=== PATIENT | female | born 1970 | race Two or more races ===

== ENCOUNTER 2017-03-28 07:46 | Emergency (ER) | payer OTHER ==
[2017-03-28 08:07] VITALS: BP 118/92
--- NOTE | 2017-03-28 09:14 | UC ---
Nimesh Maxwell Alok, scribed for Guillermo De La Torre MD on 03/28/17 at 0823 . Back Pain HPI - HPI Summary HPI Summary: 47F presents to [facility] with back pain since 4 days ago, worsening last night. Pt states that her back pain is bilateral though worse on the left side, and wraps to her frontal suprapubic area. Pt states her pain registers at a 9/10 in severity and that her pain is worsened with movement. Pt also notes left leg weakness. Pt denies numbness after urine or BM. Pt denies incontinence. Pt denies rash. PMHx includes HLD. PSHx includes tonsillectomy. Pt is allergic to Codeine. FMHx includes CAD. - History of Current Complaint Chief Complaint: UCBackPain Stated Complaint: BACK PAIN Time Seen by Provider: 03/28/17 08:10 Hx Obtained From: Patient Hx Last Menstrual Period: 03/23/17 Onset/Duration: Lasting Days, Worse Since - last night Severity Initially: Moderate Severity Currently: Moderate Pain Intensity: 9 Pain Scale Used: 0-10 Numeric Back Pain: Is Discrete @ - lower back, Radiates To - suprapubic Aggravating: Movement Associated Signs And Symptoms: Positive: Weakness - left leg, Abdominal Pain - suprapubic, Flank Pain. Negative: Fever, Numbness, Bladder Incontinence, Bowel Incontinence - Allergies/Home Medications Allergies/Adverse Reactions: Allergies Allergy/AdvReac Type Severity Reaction Status Date / Time Codeine Allergy Severe Vomiting Verified 08/10/16 16:54 PMH/Surg Hx/FS Hx/Imm Hx Endocrine History Of: Reports: Dyslipidemia - HLD Denies: Diabetes, Thyroid Disease, Hyperthyroidism, Hypothyroidism Cardiovascular History Of: Denies: Cardiac Disorders, Hypertension, Pacemaker/ICD Respiratory History Of: Denies: COPD, Asthma GI/ History Of: Denies: Ulcer Neurological History Of: Denies: TIA, Seizures Psychological History Of: Denies: Anxiety, Depression Cancer History Of: Denies: Breast Cancer - Surgical History Surgical History: Yes Surgery Procedure, Year, and Place: TONSILS EARLY ;. VENOUS ABLASION FOR VARICOS VEINS;. EXPLORATORY LAP FOR ENDOMETRIOSIS ; - Family History Known Family History: Positive: Cardiac Disease, Other - hyperlipidemia. [place]. - Social History Occupation: Employed Full-time Lives: With Family Alcohol Use: Occasionally Substance Use Type: None Smoking Status (MU): Never Smoked Tobacco Review of Systems Constitutional: Negative Skin: Negative Genitourinary: Other - suprapublic pain. Negative: numbness after BM/urine. Negative: incontinence Musculoskeletal: Other: - back pain, left leg weakness All Other Systems Reviewed And Are Negative: Yes Physical Exam Triage Information Reviewed: Yes Appearance: Pain Distress Vital Signs: Initial Vital Signs Temp 98.3 F 03/28/17 08:00 Pulse 78 03/28/17 08:00 Resp 16 03/28/17 08:00 BP 118/92 03/28/17 08:00 Pulse Ox 100 03/28/17 08:00 Vital Signs Reviewed: Yes Eyes: Positive: Conjunctiva Clear ENT: Positive: Normal ENT inspection Neck: Positive: Supple, Nontender Respiratory: Positive: Chest non-tender, Lungs clear Cardiovascular: Positive: RRR, No Murmur Abdomen Description: Positive: Nontender Musculoskeletal: Positive: ROM Limited @ - due to pain in low back Neurological: Positive: Alert, Other: - she is ambulatory with pain in her back. Strength 5/5 legs, and upper extremities. Sensory grossly intact. Psychological: Positive: Normal Response To Family Skin: Negative: rashes Back Pain Course/Dx - Course Course Of Treatment: 47 yr old female with pain in low back, worse with movement and pain into her perineal area, and in the left thigh area. She will likely need MRI. She signed out AMA, and refused ambulance to [facility]. Dr Rubi Notified. She says she is driving to [facility] by her parents driving her. - Differential Dx/Diagnosis Provider Diagnoses: back pain - Physician Notifications Discussed Patient Care With: Dr. Rubi (ED) @ 0888 - made aware of pt hx and transit to ED Discharge - Discharge Plan Condition: Good Disposition: AGAINST MEDICAL ADVICE Referrals: Jean-Pierre Sofia MD [Primary Care Provider] - The documentation as recorded by the Nimesh crawley Alok accurately reflects the service I personally performed and the decisions made by , Guillermo De La Torre MD.
== END 2017-03-28 08:58 | disposition left against medical advice (07) ==
LOC: UCEAST 07:46
DX: M54.9 Dorsalgia, unspecified (principal); M62.81 Muscle weakness (generalized); R10.30 Lower abdominal pain, unspecified; Z88.5 Allergy status to narcotic agent; E78.5 Hyperlipidemia, unspecified
CPT/HCPCS: 99212; G0463

== ENCOUNTER 2017-03-28 09:09 | Emergency (ER) | payer OTHER ==
[2017-03-28] MEDS ORDERED: NS 0.9% 1000 ML* 1,000 ML IV ONE (10:27)
[2017-03-28] MEDS ORDERED: Ketorolac INJ* 30 MG/ML 1 ML VIAL IV PUSH ONE (10:29)
[2017-03-28] MEDS ORDERED: Diazepam TAB(*) 5 MG PO ONE (10:29)
[2017-03-28 10:56] LABS: Hematocrit 38 % (35-47); Hemoglobin 12.9 g/dl (12.0-16.0); Mean Corpuscular HGB Conc 34 g/dl (31-36); Mean Corpuscular Hemoglobin 32 pg (27-31); Mean Corpuscular Volume 94 fL (80-97); Mean Platelet Volume 7 um3 (7.4-10.4); Red Blood Count 4.04 10^6/ul (4.0-5.4); Red Cell Distribution Width 13 % (10.5-15); White Blood Count 5.4 10^3/ul (3.5-10.8)
[2017-03-28 11:11] LABS: C Reactive Protein < 1.00 mg/L (< 5.00)
[2017-03-28 11:47] LABS: Erythrocyte Sed Rate 18 mm/Hr (0-14)
[2017-03-28] MEDS ORDERED: Morphine INJ* 4 MG/ML 1 ML SYRINGE IV ONE (14:02)
[2017-03-28] MEDS ORDERED: Ondansetron INJ* 2 MG/ML VIAL IV ONE (14:02)
[2017-03-28 14:18] LABS: ALT 13 U/L (7-52); AST 21 U/L (13-39); Albumin 3.8 g/dL (3.2-5.2); Alkaline Phosphatase 38 U/L (34-104); Anion Gap 7 mmol/L (2-11); BUN/Creatinine Ratio 21.9 (8-20); Blood Urea Nitrogen 16 mg/dL (6-24); CO2 Carbon Dioxide 24 mmol/L (22-32); Calcium 8.5 mg/dL (8.6-10.3); Chloride 104 mmol/L (101-111); EGFR African American 109.9 (>60); EGFR Non-African American 85.5 (>60); Globulin 2.6 g/dL (2-4); Glucose 98 mg/dL (70-100); Potassium 4.6 mmol/L (3.5-5.0); Sodium 135 mmol/L (133-145); Total Protein 6.4 g/dL (6.4-8.9)
[2017-03-28 18:01] LABS: Urine Bacteria Absent (Absent); Urine Bilirubin Negative (Negative); Urine Glucose Negative (Negative); Urine Nitrite Negative (Negative)
[2017-03-28] MEDS ORDERED: oxyCODONE/Acetamin 5/325 MG* TAB PO ONE (18:11)
--- NOTE | 2017-03-28 19:25 | RAD ---
INDICATION: Back pain with radiation into the left leg COMPARISON: CT abdomen pelvis dated May 02, 2007 that shows mildly prominent left greater than right pelvic varicose veins in the setting of a mildly enlarged left ovarian vein. TECHNIQUE: Coronal manager maritime, sagittal T1, inversion recovery, T2, and axial T1, T2 images were acquired. FINDINGS: The spinal cord terminates at the L1/L2 level. There are no intrinsic abnormalities of the visualized cord. The lower thoracic and lumbar vertebrae are normally aligned. Vertebral body height is adequately maintained and bony signal is within normal limits. On the sagittal view images the intervertebral discs maintain appropriate T2 signal and adequate maintenance of height. At the S2 level there is a 6 mm fluid density well-circumscribed cyst (sagittal image 8) most consistent with a Tarlov cyst. Axial view images: At the lower lumbar spine there is mild facet arthropathy and mild thickening of the ligamentum flavum that does not yield any significant neural foraminal or central canal stenosis. Unless otherwise specified below there is no significant central canal stenosis or neural foraminal stenosis. L1-L2: There is no significant central canal or neural foraminal stenoses. L2-L3: There is no significant central canal or neural foraminal stenoses. L3-L4: There is no significant central canal or neural foraminal stenoses. L4-L5: Facet arthropathy and mild broad-based disc protrusion at the right neural foramen combining to cause mild to moderate right and mild left neural foraminal stenosis. L5-S1: Mild broad-based disc protrusion combines with facet arthropathy causing mild bilateral neural foraminal stenosis. IMPRESSION: 1. Mild degenerative changes of the lower lumbar spine combine to cause mild to moderate neural foraminal stenoses at L4/L5 and L5/S1. 2. There are no severely herniated or sequestered disc fragment identified.
--- NOTE | 2017-03-28 19:26 | ED ---
Bharat Maxwell Billy, scribed for Daquan Rubi MD on 03/28/17 at 1012 . Back Pain - HPI Summary HPI Summary: Patient is a 47 year-old coming to [facility] for evaluation of lower back pain. She had one episode of shooting, aching pain 3 days ago, which resolved spontaneously and gradually improved over time. However, the pain returned yesterday, and has been constant since. She took 2x extra strength Tylenol this morning at 0500 with no improvement. Pain severity is 7/10 at rest on her back, but is significantly worse with any movement. Pain is worse on the left than the right. It radiates to her lower abdomen and lower extremities. She says it feels like "heat and tingling" in the legs, down to the calf, and is much worse on the left. Positive nausea. Denies any changes in urinary or bladder movements. Denies hematuria. Denies weakness in the lower extremities. Denies neck pain. Denies any recent strenuous activity or disc herniation. She has a history of kidney stones. Denies history of back problems or disc herniations. - History of Current Complaint Chief Complaint: EDGeneral Stated Complaint: BACK PAIN Time Seen by Provider: 03/28/17 09:56 Hx Obtained From: Patient Hx Last Menstrual Period: 03/23/17 Onset/Duration: Lasting Days, Still Present, Worse Since - yesterday Timing: Intermittent Back Pain Location: Is Discrete @ - lower back Severity Initially: Moderate Severity Currently: Moderate Pain Intensity: 7 Pain Scale Used: 0-10 Numeric Aggravating Symptom(s): Movement Alleviating Symptom(s): Rest Associated Signs And Symptoms: Positive: Tingling, Other - nausea. Negative: Fever, Weakness, Bladder Incontinence, Bowel Incontinence - Allergies/Home Medications Allergies/Adverse Reactions: Allergies Allergy/AdvReac Type Severity Reaction Status Date / Time Codeine Allergy Severe Vomiting Verified 08/10/16 16:54 PMH/Surg Hx/FS Hx/Imm Hx Endocrine/Hematology History: Denies: Hx Diabetes, Hx Thyroid Disease Cardiovascular History: Reports: Hx Hypercholesterolemia Denies: Hx Hypertension, Hx Pacemaker/ICD, Hx Peripheral Vascular Disease Respiratory History: Denies: Hx Asthma, Hx Chronic Obstructive Pulmonary Disease (COPD) GI History: Denies: Hx Ulcer Musculoskeletal History: Denies: Hx Arthritis, Hx Osteoporosis, Hx Scoliosis Sensory History: Denies: Hx Cataracts, Hx Contacts or Glasses, Hx Glaucoma, Hx Hearing Aid Opthamlomology History: Denies: Hx Cataracts, Hx Contacts or Glasses, Hx Glaucoma Neurological History: Denies: Hx Headaches, Hx Seizures, Hx Transient Ischemic Attacks (TIA), Other Neuro Impairments/Disorders Psychiatric History: Denies: Hx Anxiety, Hx Depression, Hx Panic Disorder - Cancer History Hx Chemotherapy: No Hx Radiation Therapy: No - Surgical History Surgery Procedure, Year, and Place: TONSILS EARLY ;. VENOUS ABLASION FOR VARICOS VEINS;. EXPLORATORY LAP FOR ENDOMETRIOSIS ; Infectious Disease History: No Infectious Disease History: Denies: Hx Clostridium Difficile, Hx Hepatitis, Hx Human Immunodeficiency Virus (HIV), Hx of Known/Suspected MRSA, Hx Shingles, Hx Tuberculosis, Hx Known/ Suspected VRE, Hx Known/Suspected VRSA, History Other Infectious Disease, Traveled Outside the [place] in Last 30 Days - Family History Known Family History: Positive: Other - hyperlipidemia. [place]. - Social History Alcohol Use: Occasionally Substance Use Type: Reports: None Smoking Status (MU): Never Smoked Tobacco Review of Systems Negative: Fever Positive: Nausea Musculoskeletal: Other - back pain Positive: Paresthesia. Negative: Weakness All Other Systems Reviewed And Are Negative: Yes Physical Exam - Summary Physical Exam Summary: The patient is well-nourished in no acute distress and in no acute pain. The skin is warm and dry and skin color reflects adequate perfusion. HEENT: The head is normocephalic and atraumatic. The pupils are equal and reactive. The conjunctivae are clear and without drainage. Nares are patent and without drainage. Mouth reveals moist mucous membranes and the throat is without erythema and exudate. The external ears are intact. The ear canals are patent and without drainage. The tympanic membranes are intact. Neck is supple with full range of motion and non-tender. There are no carotid bruits. There is no neck vein distension. Respiratory: Chest is non-tender. Lungs are clear to auscultation and breath sounds are symmetrical and equal. Cardiovascular: Heart is regular rate and rhythm. There is no murmur or rub auscultated. There is no peripheral edema and pulses are symmetrical and equal. Abdomen: The abdomen is soft and non-tender. There are normal bowel sounds heard in all four quadrants and there is no organomegaly palpated. Musculoskeletal: Positive straight leg raise on the left. Negative right-sided straight leg raise. DTR's symmetrical. No muscle spasm noted in the back. No buttock pain or sciatic pain noted. There is good capillary refill. There is no peripheral edema or calf tenderness elicited. Neurological: Patient is alert and oriented to person, place and time. The patient has symmetrical motor strength in all four extremities. Cranial nerves are grossly intact. Deep tendon reflexes are symmetrical and equal in all four extremities. Psychiatric: The patient has an appropriate affect and does not exhibit any anxiety or depression. Triage Information Reviewed: Yes Vital Signs On Initial Exam: Initial Vitals Temp Pulse Resp BP Pulse Ox 98.2 F 93 20 131/91 98 03/28/17 09:11 03/28/17 09:11 03/28/17 09:11 03/28/17 09:11 03/28/17 09:11 Vital Signs Reviewed: Yes - [place] Coma Scale Coma Scale Total: 15 Diagnostics - Vital Signs Vital Signs Temp Pulse Resp BP Pulse Ox 03/28/17 09:28 79 96 03/28/17 09:26 134/90 03/28/17 09:15 98.2 F 91 20 131/91 97 03/28/17 09:11 98.2 F 93 20 131/91 98 - Laboratory Lab Results: Lab Results 03/28/17 03/28/17 03/28/17 Range/Units 10:48 10:48 10:48 WBC 5.4 (3.5-10.8) 10^3/ul RBC 4.04 (4.0-5.4) 10^6/ul Hgb 12.9 (12.0-16.0) g/dl Hct 38 (35-47) % MCV 94 (80-97) fL MCH 32 H (27-31) pg MCHC 34 (31-36) g/dl RDW 13 (10.5-15) % Plt Count 275 (150-450) 10^3/ul MPV 7 L (7.4-10.4) um3 Neut % (Auto) 64.6 (38-83) % Lymph % (Auto) 24.2 L (25-47) % [place] % (Auto) 8.8 (1-9) % Eos % (Auto) 1.2 (0-6) % Baso % (Auto) 1.2 (0-2) % Absolute Neuts (auto) 3.5 (1.5-7.7) 10^3/ul Absolute Lymphs (auto) 1.3 (1.0-4.8) 10^3/ul Absolute Monos (auto) 0.5 (0-0.8) 10^3/ul Absolute Eos (auto) 0.1 (0-0.6) 10^3/ul Absolute Basos (auto) 0.1 (0-0.2) 10^3/ul Absolute Nucleated RBC 0 10^3/ul Nucleated RBC % 0.1 ESR 18 H (0-14) mm/Hr Sodium 135 (133-145) mmol/L Potassium 4.6 (3.5-5.0) mmol/L Chloride 104 (101-111) mmol/L Carbon Dioxide 24 (22-32) mmol/L Anion Gap 7 (2-11) mmol/L BUN 16 (6-24) mg/dL Creatinine 0.73 (0.51-0.95) mg/dL Est GFR ( Amer) 109.9 (>60) Est GFR (Non-Af Amer) 85.5 (>60) BUN/Creatinine Ratio 21.9 H (8-20) Glucose 98 (70-100) mg/dL Lactic Acid 1.0 (0.5-2.0) mmol/L Calcium 8.5 L (8.6-10.3) mg/dL Total Bilirubin 0.60 (0.2-1.0) mg/dL AST 21 (13-39) U/L ALT 13 (7-52) U/L Alkaline Phosphatase 38 (34-104) U/L C-Reactive Protein < 1.00 (< 5.00) mg/L Total Protein 6.4 (6.4-8.9) g/dL Albumin 3.8 (3.2-5.2) g/dL Globulin 2.6 (2-4) g/dL Albumin/Globulin Ratio 1.5 (1-3) Urine Color Urine Appearance Urine pH (5-9) Ur Specific Elaine (1.010-1.030) Urine Protein (Negative) Urine Ketones (Negative) Urine Blood (Negative) Urine Nitrate (Negative) Urine Bilirubin (Negative) Urine Urobilinogen (Negative) Ur Leukocyte Esterase (Negative) Urine WBC (Auto) (Absent) Urine RBC (Auto) (Absent) Ur Squamous Epith Cells (Absent) Urine Bacteria (Absent) Urine Glucose (Negative) 03/28/17 Range/Units 17:45 WBC (3.5-10.8) 10^3/ul RBC (4.0-5.4) 10^6/ul Hgb (12.0-16.0) g/dl Hct (35-47) % MCV (80-97) fL MCH (27-31) pg MCHC (31-36) g/dl RDW (10.5-15) % Plt Count (150-450) 10^3/ul MPV (7.4-10.4) um3 Neut % (Auto) (38-83) % Lymph % (Auto) (25-47) % [place] % (Auto) (1-9) % Eos % (Auto) (0-6) % Baso % (Auto) (0-2) % Absolute Neuts (auto) (1.5-7.7) 10^3/ul Absolute Lymphs (auto) (1.0-4.8) 10^3/ul Absolute Monos (auto) (0-0.8) 10^3/ul Absolute Eos (auto) (0-0.6) 10^3/ul Absolute Basos (auto) (0-0.2) 10^3/ul Absolute Nucleated RBC 10^3/ul Nucleated RBC % ESR (0-14) mm/Hr Sodium (133-145) mmol/L Potassium (3.5-5.0) mmol/L Chloride (101-111) mmol/L Carbon Dioxide (22-32) mmol/L Anion Gap (2-11) mmol/L BUN (6-24) mg/dL Creatinine (0.51-0.95) mg/dL Est GFR ( Amer) (>60) Est GFR (Non-Af Amer) (>60) BUN/Creatinine Ratio (8-20) Glucose (70-100) mg/dL Lactic Acid (0.5-2.0) mmol/L Calcium (8.6-10.3) mg/dL Total Bilirubin (0.2-1.0) mg/dL AST (13-39) U/L ALT (7-52) U/L Alkaline Phosphatase (34-104) U/L C-Reactive Protein (< 5.00) mg/L Total Protein (6.4-8.9) g/dL Albumin (3.2-5.2) g/dL Globulin (2-4) g/dL Albumin/Globulin Ratio (1-3) Urine Color Yellow Urine Appearance Cloudy Urine pH 5.0 (5-9) Ur Specific Elaine 1.028 (1.010-1.030) Urine Protein 1+(30 mg/dl) H (Negative) Urine Ketones 1+ H (Negative) Urine Blood 1+ H (Negative) Urine Nitrate Negative (Negative) Urine Bilirubin Negative (Negative) Urine Urobilinogen Negative (Negative) Ur Leukocyte Esterase Trace H (Negative) Urine WBC (Auto) Trace(0-5/hpf) (Absent) Urine RBC (Auto) 2+(6-10/hpf) H (Absent) Ur Squamous Epith Cells Present H (Absent) Urine Bacteria Absent (Absent) Urine Glucose Negative (Negative) Result Diagrams: 03/28/17 10:48 03/28/17 10:48 Lab Statement: Any lab studies that have been ordered have been reviewed, and results considered in the medical decision making process. - Additional Comments Diagnostic Additional Comments: See EMR for radiologist's official interpretation of the patient's lumbar spine MRI. Radiologist called the ED and gave verbal report: MRI negative for disc herniation. He gives a diagnosis of pelvic congestion syndrome. Re-Evaluation - Re-Evaluation First Eval Re-Evaluation Time: 12:36 Change: Improved Comment: Pain is under control at this time. Discussed plan for MRI at 1530. Second Eval Re-Evaluation Time: 14:01 Change: Worse Comment: She complains of pain to the left lower back. Back Pain Course/Dx - Course Assessment/Plan: This patient is a 47 year-old female coming to [facility] for evaluation of lower back pain. In the ED course, the patient was hydrated with IV fluids and given Toradol for pain as well as Valium. Upon re-evaluation, she complained of worsening pain and was given Morphine. The pain continued and she was given one dose of Percocet. Due to the presentation of her symptoms, an MRI of her lumbar spine was ordered. MRI is negative for disc herniation per radiologist. He believes she has pelvic congestion syndrome. She will be discharged home with instructions for pain management. - Diagnoses Differential Diagnosis/HQI/PQRI: Positive: Cauda Equina Syndrome, Compressive Cord Syndrome, Herniated Disc, Renal Colic, Other - pelvic congestion syndrome, degenerative disc disease Provider Diagnoses: Pelvic congestion syndrome, Back pain Discharge - Discharge Plan Condition: Stable Disposition: HOME Prescriptions: Cyclobenzaprine TAB* [Flexeril 10 MG TAB*] 10 mg PO TID PRN #30 tab PRN Reason: Pain oxyCODONE/Acetamin 5/325 MG* [Percocet 5/325 TAB*] 1 tab PO Q6H PRN #20 tab MDD 4 PRN Reason: Pain Patient Education Materials: Back Pain (ED) Referrals: Jean-Pierre Sofia MD [Primary Care Provider] - Manpreet Dowling MD [Medical Doctor] - The documentation as recorded by the Bharat crawley Billy accurately reflects the service I personally performed and the decisions made by , Daquan Rubi MD.
[2017-03-28 19:54] VITALS: BP 122/95
== END 2017-03-28 19:48 | disposition home or self-care (01) ==
LOC: ED 09:09
DX: M54.5 Low back pain (principal); N94.89 Other specified conditions associated with female genital organs and menstrual cycle; E78.00 Pure hypercholesterolemia, unspecified; Z88.5 Allergy status to narcotic agent
CPT/HCPCS: 36415; 72148; 80053; 81003; 81015; 83605; 85025; 85652; 86140; 87086; 96360; 96374; 96375; 99284; A9270-GY; J1885; J2270; J2405

== ENCOUNTER 2019-03-13 11:13 | Emergency (ER) | payer OTHER ==
[2019-03-13] MEDS ORDERED: Lidocaine 1%* 5 ML VIAL INJ ONE (11:22)
[2019-03-13] MEDS ORDERED: Diphth/Teta/Acell Pertusis* 0.5 ML VIAL ** FOR 6 WKS TO 7 YRS OLD IM ONE (11:23)
--- NOTE | 2019-03-13 11:24 | ED ---
Laceration/Wound HPI - HPI Summary HPI Summary: Pt. is a 49 y.o female who presents to the ER for laceration to left thumb that occurred [employer]LECT[employer]ATING WORK[employer]. Pt. states she was opening a tire fabricator when it slipped and cut left thumb. Last tetanus immunization was 5 years ago per pt. No past medical hx. Touching affected area makes sxs worse. Rest makes sxs better. - History of Current Complaint Stated Complaint: LEFT THUMB LACERATION PER PT Time Seen by Provider: 03/13/19 11:22 Hx Obtained From: Patient Hx Last Menstrual Period: 03/23/17 Pain Intensity: 1 - Allergy/Home Medications Allergies/Adverse Reactions: Allergies Allergy/AdvReac Type Severity Reaction Status Date / Time codeine Allergy Vomiting Verified 03/13/19 11:16 PMH/Surg Hx/FS Hx/Imm Hx Previously Healthy: Yes Endocrine/Hematology History: Denies: Hx Diabetes, Hx Thyroid Disease Cardiovascular History: Reports: Hx Hypercholesterolemia Denies: Hx Hypertension, Hx Pacemaker/ICD, Hx Peripheral Vascular Disease Respiratory History: Denies: Hx Asthma, Hx Chronic Obstructive Pulmonary Disease (COPD) GI History: Denies: Hx Ulcer Musculoskeletal History: Denies: Hx Arthritis, Hx Osteoporosis, Hx Scoliosis Sensory History: Denies: Hx Cataracts, Hx Contacts or Glasses, Hx Glaucoma, Hx Hearing Aid Opthamlomology History: Denies: Hx Cataracts, Hx Contacts or Glasses, Hx Glaucoma Neurological History: Denies: Hx Headaches, Hx Seizures, Hx Transient Ischemic Attacks (TIA), Other Neuro Impairments/Disorders Psychiatric History: Denies: Hx Anxiety, Hx Depression, Hx Panic Disorder - Cancer History Hx Chemotherapy: No Hx Radiation Therapy: No - Surgical History Surgery Procedure, Year, and Place: TONSILS EARLY ;. VENOUS ABLASION FOR VARICOS VEINS;. EXPLORATORY LAP FOR ENDOMETRIOSIS ; Infectious Disease History: No Infectious Disease History: Denies: Hx Clostridium Difficile, Hx Hepatitis, Hx Human Immunodeficiency Virus (HIV), Hx of Known/Suspected MRSA, Hx Shingles, Hx Tuberculosis, Hx Known/ Suspected VRE, Hx Known/Suspected VRSA, History Other Infectious Disease, Traveled Outside the [place] in Last 30 Days - Family History Known Family History: Positive: Cardiac Disease, Other - hyperlipidemia. [place]. - Social History Occupation: Employed Full-time Lives: With Family Alcohol Use: Occasionally Substance Use Type: Reports: None Smoking Status (MU): Never Smoked Tobacco Review of Systems Positive: Other - laceration to left thumb Negative: Weakness, Paresthesia, Numbness All Other Systems Reviewed And Are Negative: Yes Physical Exam Triage Information Reviewed: Yes Vital Signs On Initial Exam: Initial Vitals Temp Pulse Resp BP Pulse Ox 96.9 F 111 16 133/95 94 03/13/19 11:16 03/13/19 11:16 03/13/19 11:16 03/13/19 11:16 03/13/19 11:16 Vital Signs Reviewed: Yes Appearance: Positive: Well-Appearing - Pt. sitting on bed in NAD> present. Skin: Positive: Warm, Dry Head/Face: Positive: Normal Head/Face Inspection Eyes: Positive: Normal, EOMI Neck: Positive: Supple Musculoskeletal: Positive: Other - 2 cm triangular shaped laceration noted medially along left thumb distally. No nail involvement. Full ROM of digit. Neurological: Positive: Normal, CN Intact II-III Psychiatric: Positive: Affect/Mood Appropriate Procedures - Laceration/Wound Repair 1 Location: upper extremity - left thumb Description: Irregular Anesthesia: Local, 1.0%, L[place] Length, Depth and Shape: 2cm triangular shaped, full thickness Irrigated w/ Saline (ccs): 100 Laceration/Wound Explored: clean Closure: Single Layer Suture Type: Nylon Number of Sutures: 3 Layer Closure?: No Sterile Dressing Applied?: Yes Diagnostics - Vital Signs Vital Signs Temp Pulse Resp BP Pulse Ox 03/13/19 11:16 96.9 F 111 16 133/95 94 - Laboratory Lab Statement: Any lab studies that have been ordered have been reviewed, and results considered in the medical decision making process. Laceration Repair Course/Dx - Course Course Of Treatment: Pt. presenting for simple thumb laceration that was repaired as noted above. Suture removal in 7-10 days. Keep wound clean and dry. Return to ER for redness, swelling, or drainage from wound. Pt. understands and agrees with plan. - Differential Dx Differental Diagnoses: Laceration, Tendon Laceration - Clinical Impression Provider Diagnoses: Laceration of thumb Discharge - Sign-Out/Discharge Documenting (check all that apply): Patient Departure Patient Received Moderate/Deep Sedation with Procedure: No - Discharge Plan Condition: Improved Disposition: HOME Patient Education Materials: Care For Your Stitches (ED) Referrals: Jean-Pierre Sofia MD [Primary Care Provider] - Additional Instructions: Suture removal in 7-10 days Keep wound clean and dry Return to ER for redness, swelling, or drainage from wound - Billing Disposition and Condition Condition: IMPROVED Disposition: Home
[2019-03-13 12:22] VITALS: BP 126/93
== END 2019-03-13 12:20 | disposition home or self-care (01) ==
LOC: ED 11:13
DX: S61.012A Laceration without foreign body of left thumb without damage to nail, initial encounter (principal); W29.0XXA Contact with powered kitchen appliance, initial encounter; Z88.5 Allergy status to narcotic agent
CPT/HCPCS: 12001; 99282

== ENCOUNTER 2020-01-06 03:06 | Emergency (ER) | payer OTHER ==
--- OUTSIDE RECORDS SUMMARY | 2020-01-06 04:09 | XMS REPORT | Continuity of Care Document ---
:1970 External Reference #:[id number] Author Name Saman Do MD (transmitted by agent of provider Carmen Craven) Address [address] [place] [id number] Care Team Providers Name Role Phone Jean-Pierre Sofia MD - Endocrinology, Care Team Information Business Account Executive [phone] Diabetes & Metabolism Problems Active Problems Provider Date Disturbance in sleep behavior Nadine Matthews MD Onset: 04/04/2016 Restless legs Nadine Matthews MD Onset: 04/04/2016 Obstructive sleep apnea syndrome Nadine Matthews MD Onset: 06/11/2016 Hypersomnia Sweetie Mckenzie DNP, RN, [employer]- Onset: 10/01/2016 Pelvic varices Manpreet Dowling M.D. Onset: 04/16/2017 Disorder of shoulder Suman Posadas MD Onset: 08/19/2019 Social History Type Date Description Comments Sex Unknown Tobacco Use Start: Unknown Never Smoked Cigarettes Smoking Status Reviewed: 11/25/19 Never Smoked Cigarettes ETOH Use Consumes 5 glasses of wine per week Tobacco Use Start: Unknown Patient has never smoked Recreational Drug Use Denies Drug Use Exercise Type/Frequency Exercises regularly walking, biking, kayaking Allergies, Adverse Reactions, Alerts Active Allergies Reaction Severity Comments Date Codeine Nausea and Vomiting 04/04/2016 Pineapple 04/16/2017 Medications Active Medications SIG Qnty Indications Ordering Provider Date Atorvastatin Calcium take 1 tablet Unknown 04/03/2016 20mg every other day Tablets Fluoxetine HCL 1 by mouth every Unknown 04/03/2016 20mg day Capsules Adderall 1 po bid prn or Unknown 10mg Tablets as directed prn Cpap use at hs Unknown Device Minocycline HCL Take 1 Capsule By Unknown 100mg Mouth Two Times Capsules Daily With A Full Glass Of Water -- DO Not Lie Down For 1 Hour After Taking Medications Administered in Office Medication SIG Qnty Indications Ordering Provider Date Triamcinolone (Kenalog) Suman Posadas MD 08/19/2019 Injection Immunizations Description No Information Available Vital Signs Date Vital Result Comment 11/25/2019 10:39am Height 69 inches 5'9" Weight 170.00 lb Heart Rate 74 /min BP Systolic 140 mmHg BP Diastolic 78 mmHg Respiratory Rate 12 /min Pain Level 3 BMI (Body Mass Index) 25.1 kg/m2 08/19/2019 1:47pm Height 69 inches 5'9" Weight 183.00 lb Heart Rate 120 /min BP Systolic 128 mmHg BP Diastolic 80 mmHg Body Temperature 97.6 F Pain Level 2 BMI (Body Mass Index) 27.0 kg/m2 Results Description No Information Available Procedures Date Code Description Status 08/19/2019 74711 Inject/Drain Joint/Bursa Major W/O US Completed Medical Devices Description No Information Available Encounters Type Date Location Provider Dx Diagnosis Office Visit 08/19/2019 [facility] Suman Posadas MD M75.42 Impingement 1:45p at [place] syndrome of left shoulder S46.012D Strain of musc/tend the rotator cuff of left shoulder, subs Office Visit 08/03/2019 9:30a [facility] M75.42 Impingement at [place] syndrome of left shoulder S46.012A Strain of musc/tend the rotator cuff of left shoulder, init Assessments Date Code Description Provider 11/25/2019 S46.012D Strain of muscle(s) and tendon(s) of the Saman Do MD rotator cuff of left shoulder, subsequent encounter 11/25/2019 M75.42 Impingement syndrome of left shoulder Saman Do MD 08/19/2019 M75.42 Impingement syndrome of left shoulder Suman Posadas MD 08/19/2019 S46.012D Strain of muscle(s) and tendon(s) of the Suman Posadas MD rotator cuff of left shoulder, subsequent encounter 08/03/2019 M75.42 Impingement syndrome of left shoulder Suman Posadas MD 08/03/2019 S46.012A Strain of muscle(s) and tendon(s) of the Suman Posadas MD rotator cuff of left shoulder, initial encounter Plan of Treatment 11/25/2019 - Saman Do, MDS46.012D Strain of muscle(s) and tendon(s) of the rotator cuff of left shoulder, subsequent encounterNew Therapy:Physical TherapyFollow up:Follow up: As [id number] Impingement syndrome of left shoulder Functional Status Functional Condition Comment Date Status none Active Mental Status Description No Information Available Referrals Description No Information Available
[2020-01-06] MEDS ORDERED: NS 0.9% 1000 ML** 1,000 ML IV ONE (04:14)
[2020-01-06] MEDS ORDERED: Al Hydrox/Mg Hydrox/Simet LIQ* 30 ML UDC PO ONE ×2 (04:14)
[2020-01-06] MEDS ORDERED: Pantoprazole IV* 40 MG IV ONE (04:14)
[2020-01-06] MEDS: Lidocaine 2% VISCOUS* 15 ML UDC PO ONE ×2 (04:23→04:25)
[2020-01-06 04:36] LABS: ABS Eosinophils 0.1 10^3/ul (0-0.6); ABS Lymphocytes 1.2 10^3/ul (1.0-4.8); ABS Monocytes 0.9 10^3/ul (0-0.8); Eosinophil % 1.1 %; Hematocrit 40 % (35-47); Hemoglobin 13.9 g/dL (12.0-16.0); Lymphocyte % 11.7 %; Mean Corpuscular HGB Conc 35 g/dL (31-36); Mean Corpuscular Hemoglobin 33 pg (27-31); Mean Corpuscular Volume 95 fL (80-97); Mean Platelet Volume 6.8 fL (7.4-10.4); Platelet Count 337 10^3/uL (150-450); Red Blood Count 4.22 10^6 /uL (3.70-4.87); Red Cell Distribution Width 13 % (10-15); White Blood Count 10.3 10^3/uL (3.5-10.8)
[2020-01-06 04:48] LABS: Urine Appearance Cloudy; Urine Bilirubin Negative (Negative); Urine Blood 1+ (Negative); Urine Color Straw; Urine Glucose Negative (Negative); Urine Ketones Negative (Negative); Urine Nitrite Negative (Negative); Urine Protein Negative (Negative); Urine Specific Gravity 1.009 (1.010-1.030); Urine Urobilinogen Negative (Negative)
[2020-01-06 04:49] LABS: INR 0.92 (0.82-1.09)
[2020-01-06 04:50] LABS: Urine Bacteria 2+ (Absent); Urine Red Blood Cell Trace(0-2/hpf) (Absent); Urine Squamous Epithelial Cell Present (Absent); Urine White Blood Cell Absent (Absent)
[2020-01-06 04:58] LABS: Albumin 4.3 g/dL (3.2-5.2); Albumin/Globulin Ratio 1.7 (1-3); BUN/Creatinine Ratio 26.2 (8-20); C Reactive Protein 22.42 mg/L (<8.01); Calcium 9.4 mg/dL (8.6-10.3); EGFR African American 126.1 (>60); EGFR Non-African American 104.2 (>60); Globulin 2.6 g/dL (2-4); Potassium 4.4 mmol/L (3.5-5.0); Total Bilirubin 0.5 mg/dL (0.2-1.0); Total Protein 6.9 g/dL (6.4-8.9)
[2020-01-06 05:03] LABS: HCG Pregnancy 1.01 mIU/mL
[2020-01-06] MEDS ORDERED: Ketorolac INJ* 30 MG/ML 1 ML VIAL IV PUSH ONE (05:04)
[2020-01-06] MEDS ORDERED: Ondansetron INJ* 2 MG/ML VIAL IV ONE (05:04)
--- NOTE | 2020-01-06 05:11 | ED ---
Abdominal Pain/Female - HPI Summary HPI Summary: Patient is a y/o F presenting to [facility] with a chief complaint of epigastric pressure and diffuse low back pain onset yesterday morning. She reports that she had woken up with stiffness in her back and a discomfort in the epigastric area with sensation of bloating. She went to work where the pain worsened after eating. She attempted to eat again at 1830 but then the pain was aggravated again. She denies any chest pain, cough, diarrhea, vomiting, or fevers, although she states she feels warm. She self-administered Tylenol for a toothache yesterday at 1700. Symptoms are rated 4/10 in severity. She states she is unable to get comfortable. PMHx: HLD (now diet controlled stopped taking medication 3 months ago), kidney stones, ADD, laparoscopic exploratory surgery, tonsillectomy. FHx: gallbladder disease. Nonsmoker, weekly EtOH, no substance use. Medications reviewed. Allergies noted. - History of Current Complaint Chief Complaint: EDAbdPain Stated Complaint: ABD PAIN Hx Obtained From: Patient Hx Last Menstrual Period: 03/23/17 Onset/Duration: Sudden Onset, Still Present Timing: Constant Severity Initially: Mild Severity Currently: Moderate Pain Intensity: 4 Pain Scale Used: 0-10 Numeric Location: Epigastric Radiates: No Character: Other: - pressure Aggravating Factor(s): Food Alleviating Factor(s): Nothing Associated Signs and Symptoms: Positive: Fever - subjective, Nausea. Negative: Cough, Chest Pain, Vomiting, Diarrhea, Other: - SOB Allergies/Adverse Reactions: Allergies Allergy/AdvReac Type Severity Reaction Status Date / Time codeine Allergy Intermediate Vomiting Verified 01/06/20 04:07 Home Medications: Home Medications Dextroamphetamine/Amphetamine [Dextroamp-Amphetamin 10 mg Tab] 10 mg PO BID PRN 01/06/20 [History Confirmed 01/06/20] PMH/Surg Hx/FS Hx/Imm Hx Endocrine/Hematology History: Denies: Hx Diabetes, Hx Thyroid Disease Cardiovascular History: Reports: Hx Hypercholesterolemia Denies: Hx Hypertension, Hx Pacemaker/ICD, Hx Peripheral Vascular Disease Respiratory History: Denies: Hx Asthma, Hx Chronic Obstructive Pulmonary Disease (COPD) GI History: Denies: Hx Ulcer History: Denies: Hx Renal Disease Musculoskeletal History: Denies: Hx Arthritis, Hx Osteoporosis, Hx Scoliosis Sensory History: Denies: Hx Cataracts, Hx Contacts or Glasses, Hx Glaucoma, Hx Hearing Aid Opthamlomology History: Denies: Hx Cataracts, Hx Contacts or Glasses, Hx Glaucoma Neurological History: Denies: Hx Headaches, Hx Seizures, Hx Transient Ischemic Attacks (TIA), Other Neuro Impairments/Disorders Psychiatric History: Denies: Hx Anxiety, Hx Depression, Hx Panic Disorder - Cancer History Hx Chemotherapy: No Hx Radiation Therapy: No - Surgical History Surgical History: Yes Surgery Procedure, Year, and Place: TONSILS EARLY ;. VENOUS ABLASION FOR VARICOS VEINS;. EXPLORATORY LAP FOR ENDOMETRIOSIS ; Infectious Disease History: Denies: Hx Clostridium Difficile, Hx Hepatitis, Hx Human Immunodeficiency Virus (HIV), Hx of Known/Suspected MRSA, Hx Shingles, Hx Tuberculosis, Hx Known/ Suspected VRE, Hx Known/Suspected VRSA, History Other Infectious Disease, Traveled Outside the [place] in Last 30 Days - Family History Known Family History: Positive: Cardiac Disease, Other - hyperlipidemia. HI. - Social History Alcohol Use: Weekly Hx Substance Use: No Substance Use Type: Reports: None Hx Tobacco Use: No Smoking Status (MU): Never Smoked Tobacco - Additional Comments History Additional Comments: hypercholesterolemia Review of Systems - ROS Summary Review of Systems Summary: Home Medications Medication Instructions Recorded Confirmed Type Atorvastatin* [Lipitor 20 MG*] 20 mg PO DAILY 01/06/20 01/06/20 History Dextroamphetamine/Amphetamine 10 mg PO BID PRN 01/06/20 01/06/20 History [Dextroamp-Amphetamin 10 mg Tab] Positive: Fever - warm sensation but not measured Negative: Chest Pain Negative: Shortness Of Breath, Cough Positive: Abdominal Pain - epigastric, bloating, Nausea. Negative: Vomiting, Diarrhea All Other Systems Reviewed And Are Negative: Yes Physical Exam - Summary Physical Exam Summary: General: Well-developed, Well-developed female. Appears in moderate discomfort. HEENT: Normocephalic, Atraumatic. Eyes: Conjuctiva normal, PERRL. Oropharynx: Clear, mucous membranes moist, (-) exudates. Neck: Soft, FROM, (-) lymphadenopathy, (-) thyromegaly, (-) JVD. Cardiovascular: Normal sinus rhythm, (-) murmur. Lungs: Clear to auscultation bilaterally (-) wheezes, (-) rales, (-) rhonchi. Abdomen: Soft, mild upper abdominal tenderness to palpation, non-distended, (-) organomegaly, normal bowel sounds. Back: (-) CVA tenderness Extremities: No edema. Skin: Warm, dry, (-) rash. Neuro: Alert and oriented x3, moves all extremities equally. No ataxia. No gait disturbance. No sensory deficit. Normal strength, normal sensation. Psychiatric: Mildly agitated appearing, affect normal. Triage Information Reviewed: Yes Vital Signs Reviewed: Yes Procedures - Sedation Patient Received Moderate/Deep Sedation with Procedure: No Diagnostics - Laboratory Lab Results: Lab Results 01/06/20 01/06/20 01/06/20 Range/Units 04:21 04:28 04:28 WBC 10.3 (3.5-10.8) 10^3/uL RBC 4.22 (3.70-4.87) 10^6 /uL Hgb 13.9 (12.0-16.0) g/dL Hct 40 (35-47) % MCV 95 (80-97) fL MCH 33 H (27-31) pg MCHC 35 (31-36) g/dL RDW 13 (10-15) % Plt Count 337 (150-450) 10^3/uL MPV 6.8 L (7.4-10.4) fL Neut % (Auto) 78.1 % Lymph % (Auto) 11.7 % [place] % (Auto) 8.7 % Eos % (Auto) 1.1 % Baso % (Auto) 0.4 % Absolute Neuts (auto) 8.0 H (1.5-7.7) 10^3/ul Absolute Lymphs (auto) 1.2 (1.0-4.8) 10^3/ul Absolute Monos (auto) 0.9 H (0-0.8) 10^3/ul Absolute Eos (auto) 0.1 (0-0.6) 10^3/ul Absolute Basos (auto) 0.0 (0-0.2) 10^3/ul Absolute Nucleated RBC 0.0 10^3/ul Nucleated RBC % 0.0 INR (Anticoag Therapy) (0.82-1.09) Sodium 135 (135-145) mmol/L Potassium 4.4 (3.5-5.0) mmol/L Chloride 102 (101-111) mmol/L Carbon Dioxide 27 (22-32) mmol/L Anion Gap 6 (2-11) mmol/L BUN 16 (6-24) mg/dL Creatinine 0.61 (0.51-0.95) mg/dL Est GFR ( Amer) 126.1 (>60) Est GFR (Non-Af Amer) 104.2 (>60) BUN/Creatinine Ratio 26.2 H (8-20) Glucose 108 H (70-100) mg/dL Lactic Acid (0.5-2.0) mmol/L Calcium 9.4 (8.6-10.3) mg/dL Total Bilirubin 0.50 (0.2-1.0) mg/dL AST 21 (13-39) U/L ALT 17 (7-52) U/L Alkaline Phosphatase 69 (34-104) U/L Troponin I 0.00 (<0.03) ng/mL C-Reactive Protein 22.42 H (<8.01) mg/L Total Protein 6.9 (6.4-8.9) g/dL Albumin 4.3 (3.2-5.2) g/dL Globulin 2.6 (2-4) g/dL Albumin/Globulin Ratio 1.7 (1-3) Amylase 39 (29-103) U/L Lipase 35 (11.0-82.0) U/L Beta HCG, Quant 1.01 mIU/mL Urine Color Straw Urine Appearance Cloudy Urine pH 5.0 (5-9) Ur Specific [place] 1.009 L (1.010-1.030) Urine Protein Negative (Negative) Urine Ketones Negative (Negative) Urine Blood 1+ A (Negative) Urine Nitrate Negative (Negative) Urine Bilirubin Negative (Negative) Urine Urobilinogen Negative (Negative) Ur Leukocyte Esterase Negative (Negative) Urine WBC (Auto) Absent (Absent) Urine RBC (Auto) Trace(0-2/hpf) (Absent) Ur Squamous Epith Cells Present A (Absent) Urine Bacteria 2+ A (Absent) Urine Glucose Negative (Negative) 01/06/20 01/06/20 Range/Units 04:28 04:28 WBC (3.5-10.8) 10^3/uL RBC (3.70-4.87) 10^6 /uL Hgb (12.0-16.0) g/dL Hct (35-47) % MCV (80-97) fL MCH (27-31) pg MCHC (31-36) g/dL RDW (10-15) % Plt Count (150-450) 10^3/uL MPV (7.4-10.4) fL Neut % (Auto) % Lymph % (Auto) % [place] % (Auto) % Eos % (Auto) % Baso % (Auto) % Absolute Neuts (auto) (1.5-7.7) 10^3/ul Absolute Lymphs (auto) (1.0-4.8) 10^3/ul Absolute Monos (auto) (0-0.8) 10^3/ul Absolute Eos (auto) (0-0.6) 10^3/ul Absolute Basos (auto) (0-0.2) 10^3/ul Absolute Nucleated RBC 10^3/ul Nucleated RBC % INR (Anticoag Therapy) 0.92 (0.82-1.09) Sodium (135-145) mmol/L Potassium (3.5-5.0) mmol/L Chloride (101-111) mmol/L Carbon Dioxide (22-32) mmol/L Anion Gap (2-11) mmol/L BUN (6-24) mg/dL Creatinine (0.51-0.95) mg/dL Est GFR ( Amer) (>60) Est GFR (Non-Af Amer) (>60) BUN/Creatinine Ratio (8-20) Glucose (70-100) mg/dL Lactic Acid 0.8 (0.5-2.0) mmol/L Calcium (8.6-10.3) mg/dL Total Bilirubin (0.2-1.0) mg/dL AST (13-39) U/L ALT (7-52) U/L Alkaline Phosphatase (34-104) U/L Troponin I (<0.03) ng/mL C-Reactive Protein (<8.01) mg/L Total Protein (6.4-8.9) g/dL Albumin (3.2-5.2) g/dL Globulin (2-4) g/dL Albumin/Globulin Ratio (1-3) Amylase (29-103) U/L Lipase (11.0-82.0) U/L Beta HCG, Quant mIU/mL Urine Color Urine Appearance Urine pH (5-9) Ur Specific [place] (1.010-1.030) Urine Protein (Negative) Urine Ketones (Negative) Urine Blood (Negative) Urine Nitrate (Negative) Urine Bilirubin (Negative) Urine Urobilinogen (Negative) Ur Leukocyte Esterase (Negative) Urine WBC (Auto) (Absent) Urine RBC (Auto) (Absent) Ur Squamous Epith Cells (Absent) Urine Bacteria (Absent) Urine Glucose (Negative) Result Diagrams: 01/06/20 04:28 01/06/20 04:28 Lab Statement: Any lab studies that have been ordered have been reviewed, and results considered in the medical decision making process. - EKG 0435 Cardiac Rate: NL - 90 BPM EKG Rhythm: Sinus Rhythm EKG Comparison: Other - New T wave inversions compared to 2013 Summary of EKG Findings: EKG at 0435 reveals normal sinus rhythm with rate of 90 BPM, new T wave inversions in V2, V3 compared to 2014. This EKG was reviewed and interpreted by Dr. Garcia. Re-Evaluation - Re-Evaluation First Eval Re-Evaluation Time: 06:15 Change: Improved Comment: Pain improved with meds Second Eval Re-Evaluation Time: 07:22 Change: Improved Comment: At 07:22, patient is feeling better since arrival to [facility]. She describes her abdominal pain as diffuse, worsening in the mid epigastric region. I reviewed laboratory results with the patient. She notes nausea, but denies vomiting. Patient admits having one drink of alcohol most days of the week. She denies tobacco or drug use. Patient denies urinary burning or dysuria. She has 3 kids, all of which were delivered vaginally. She denies any abdominal surgery history. Patient is perimenopausal, with her LNMP occurring about 3 months ago. Will PO challenge, repeat lipase, and order Tylenol. Third Eval Re-Evaluation Time: 07:40 Change: Unchanged Comment: At 07:40, patient agrees with the plan to recheck the lipase and be given Tylenol. Fourth Eval Re-Evaluation Time: 08:13 Change: Unchanged Comment: At 08:13, I discussed avoiding alcohol or spicy food and patient was recommended to take probiotics like yogurt. Patient understands and agrees. Abdominal Pain Fem Course/Dx - Course Course Of Treatment: 49-year-old female presents from home with severe abdominal pain. Describes it in the upper abdomen. Patient states pain goes through to her back. Never had anything like this before. Was worse with eating.patient had moderate tenderness to palpation on exam. Appeared in significant discomfort. Laboratories showed no significant findings. Urine normal. Patient given IVfs, Protonix, Zofran, GI cocktail, and Toradol.patient had some relief. CAT scan ordered and pending. Patient sign changes shift. Awaiting CAT scan results and reevaluation for disposition. - Diagnoses Provider Diagnoses: Abdominal pain, Pancreatitis Discharge ED - Sign-Out/Discharge Documenting (check all that apply): Sign-Out Patient Signing out patient TO: Anastacio Yates - Patient is a sign-out to Dr. Anastacio Yates MD, at change of shift at 0700 on 01/06/20, pending Abd/Pel CT and disposition. - Discharge Plan Condition: Stable Disposition: HOME Patient Education Materials: Pancreatitis (ED) Referrals: Jean-Pierre Sofia MD [Primary Care Provider] - 3 Days Additional Instructions: Follow up with your primary care provider in 2-3 days. Return to the emergency department for any new or worsening symptoms. - Billing Disposition and Condition Condition: STABLE Disposition: Home - Attestation Statements Document Initiated by Scribe: Yes Documenting Scribe: Norma Harper Provider For Whom Oralia is Documenting (Include Credential): Jeanette Garcia MD Scribe Attestation: Norma Maxwell, scribed for Jeanette Garcia MD on 01/10/20 at 2107. Scribe Documentation Reviewed: Yes Provider Attestation: The documentation as recorded by the Norma crawley accurately reflects the service I personally performed and the decisions made by me, Jeanette Garcia MD Status of Scribe Document: Viewed
[2020-01-06] MEDS ORDERED: Iohexol 300* (CONTRAST) 10 ML SDV IV ONE (05:58)
--- NOTE | 2020-01-06 07:12 | ED ---
Progress - Progress Note Progress Note: Patient is a sign out at 07:00 on 01/06/[address] Jeanette Garcia to Dr. Anastacio Yates at shift change, pending Abdomen/Pelvis CT, further workup, and disposition. At 07:22, patient is feeling better since arrival to [facility]. She describes her abdominal pain as diffuse, worsening in the mid epigastric region. I reviewed laboratory results with the patient. She notes nausea, but denies vomiting. Patient admits having one drink of alcohol most days of the week. She denies tobacco or drug use. Patient denies urinary burning or dysuria. She has 3 kids, all of which were delivered vaginally. She denies any abdominal surgery history. Patient is perimenopausal, with her LNMP occurring about 3 months ago. Will PO challenge, repeat lipase, and order Tylenol. At 07:40, patient agrees with the plan to recheck the lipase and be given Tylenol. At 08:13, I discussed avoiding alcohol or spicy food and patient was recommended to take probiotics like yogurt. Patient understands and agrees. Repeat lipase: 26. Patient will be discharged with a diagnosis of abdominal pain and pancreatitis. Follow up with PCP in 2-3 days. - Results/Orders Results/Orders: Abdomen/Pelvis CT IMPRESSION: 1. Mild acute pancreatitis, greatest about the head. 2. Borderline fluid-filled small bowel in the right abdomen with a few air-fluid levels which may reflect a low-grade obstruction or possibly enteritis. 3. Left unilateral spondylolysis of L5. Reviewed by Dr. Yates. Re-Evaluation - Re-Evaluation First Eval Re-Evaluation Time: 06:15 Change: Improved Comment: Pain improved with meds Second Eval Re-Evaluation Time: 07:22 Change: Improved Comment: At 07:22, patient is feeling better since arrival to [facility]. She describes her abdominal pain as diffuse, worsening in the mid epigastric region. I reviewed laboratory results with the patient. She notes nausea, but denies vomiting. Patient admits having one drink of alcohol most days of the week. She denies tobacco or drug use. Patient denies urinary burning or dysuria. She has 3 kids, all of which were delivered vaginally. She denies any abdominal surgery history. Patient is perimenopausal, with her LNMP occurring about 3 months ago. Will PO challenge, repeat lipase, and order Tylenol. Third Eval Re-Evaluation Time: 07:40 Change: Unchanged Comment: At 07:40, patient agrees with the plan to recheck the lipase and be given Tylenol. Fourth Eval Re-Evaluation Time: 08:13 Change: Unchanged Comment: At 08:13, I discussed avoiding alcohol or spicy food and patient was recommended to take probiotics like yogurt. Patient understands and agrees. Course/Dx - Course Course Of Treatment: Patient is a sign out at 07:00 on 01/06/[address] Jeanette Garcia to Dr. Anastacio Yates at shift change, pending Abdomen/Pelvis CT, further workup, and disposition. At 07:22, patient is feeling better since arrival to [facility]. She describes her abdominal pain as diffuse, worsening in the mid epigastric region. I reviewed laboratory results with the patient. She notes nausea, but denies vomiting. Patient admits having one drink of alcohol most days of the week. She denies tobacco or drug use. Patient denies urinary burning or dysuria. She has 3 kids, all of which were delivered vaginally. She denies any abdominal surgery history. Patient is perimenopausal, with her LNMP occurring about 3 months ago. Will PO challenge, repeat lipase, and order Tylenol. In the ED course, patient was given 975 mg Tylenol. Abdomen/Pelvis CT IMPRESSION: 1. Mild acute pancreatitis, greatest about the head. 2. Borderline fluid-filled small bowel in the right abdomen with a few. air-fluid levels which may reflect a low-grade obstruction or possibly enteritis. 3. Left unilateral spondylolysis of L5. At 07:40, patient agrees with the plan to recheck the lipase and be given Tylenol. At 08:13, I discussed avoiding alcohol or spicy food and patient was recommended to take probiotics like yogurt. Patient understands and agrees. Patient will be discharged with a diagnosis of abdominal pain and pancreatitis. Follow up with PCP in 2-3 days. - Diagnoses Provider Diagnoses: Abdominal pain, Pancreatitis Discharge ED - Sign-Out/Discharge Documenting (check all that apply): Patient Departure - Discharge, Receiving Sign-Out Receiving patient FROM: Jeanette Garcia - Patient is a sign out at 07:[address] Jeanette Garcia to Dr. Anastacio Yates at shift change, pending Abdomen /Pelvis CT, further workup, and disposition. - Discharge Plan Condition: Stable Disposition: HOME Patient Education Materials: Pancreatitis (ED) Referrals: Jean-Pierre Sofia MD [Primary Care Provider] - 3 Days Additional Instructions: Follow up with your primary care provider in 2-3 days. Return to the emergency department for any new or worsening symptoms. - Billing Disposition and Condition Condition: STABLE Disposition: Home - Attestation Statements Document Initiated by Scribe: Yes Documenting Scribe: Mariia Gentile Provider For Whom Oralia is Documenting (Include Credential): Anastacio Yates MD Scribe Attestation: IMariia, scribed for Anastacio Yates MD on 01/06/20 at 1846. Scribe Documentation Reviewed: Yes Provider Attestation: The documentation as recorded by the Mariia crawley accurately reflects the service I personally performed and the decisions made by me, Anastacio Yates MD Status of Scribe Document: Viewed
[2020-01-06] MEDS ORDERED: Acetaminophen TAB* 325 MG PO ONE (07:41)
[2020-01-06 08:31] VITALS: BP 126/92
== END 2020-01-06 08:30 | disposition home or self-care (01) ==
LOC: ED 03:06
DX: R10.13 Epigastric pain (principal); R10.10 Upper abdominal pain, unspecified; K85.90 Acute pancreatitis without necrosis or infection, unspecified; M47.816 Spondylosis without myelopathy or radiculopathy, lumbar region; R14.0 Abdominal distension (gaseous); R50.9 Fever, unspecified; R11.0 Nausea; E78.00 Pure hypercholesterolemia, unspecified; Z79.899 Other long term (current) drug therapy; Z88.5 Allergy status to narcotic agent
CPT/HCPCS: 36415; 74177; 80053; 81003; 81015; 82150; 83605; 83690; 84484; 84702; 85025; 85610; 86140; 87086; 93005; 96361; 96374; 96375; 99283; A9270-GY; J1885; J2405; Q9967